=== PATIENT | female | born 1960 | race Caucasian/White ===

== ENCOUNTER 2016-09-07 18:51 | Emergency (ER) | payer OTHER ==
[~2016-09-07] VITALS: Ht 162.6 cm; Wt 81.6 kg
[~2016-09-07 18:51] MED LIST: ALBU8.5H2 IH; ALEN70TA45 PO; ARIP5TAB4 PO; ASPI-605 PO; ATOR40TA GT; LORA0.5T PO; LORA10TA7 PO; PROP20TA7 PO; RANI150T8 PO
[2016-09-07 18:55] VITALS: BP 133/81
[2016-09-07] MEDS ORDERED: CYCLOBENZAPRINE 10 MG TABLET PO ONE (21:30)
[2016-09-07] MEDS ORDERED: CYCLOBENZAPRINE 10 MG TABLET ONE (21:30)
[2016-09-07] MEDS ORDERED: IBUPROFEN 600 MG TABLET PO ONE ×2 (21:30)
== END 2016-09-07 22:38 | disposition home or self-care (01) ==
LOC: ER 18:54
DX: M54.2 Cervicalgia (principal); G50.0 Trigeminal neuralgia; I10 Essential (primary) hypertension; J45.909 Unspecified asthma, uncomplicated; K21.9 Gastro-esophageal reflux disease without esophagitis; I83.90 Asymptomatic varicose veins of unspecified lower extremity; Z79.82 Long term (current) use of aspirin
CPT/HCPCS: 72040; 99284; A4606; Z7610

== ENCOUNTER 2016-11-13 12:09 | Emergency (ER) | payer OTHER ==
[~2016-11-13] VITALS: Ht 165.1 cm; Wt 127.0 kg
[2016-11-13 12:41] VITALS: BP 134/81
[2016-11-13] MEDS ORDERED: KETOROLAC TROMETHAMINE INJ 60 MG/2 ML VIAL IM ONE ×2 (13:30→13:52)
== END 2016-11-13 14:16 | disposition home or self-care (01) ==
LOC: EDUNIT# 12:09 → ER 12:11
DX: M54.42 Lumbago with sciatica, left side (principal); G89.29 Other chronic pain; I10 Essential (primary) hypertension; J45.909 Unspecified asthma, uncomplicated; K21.9 Gastro-esophageal reflux disease without esophagitis; Z79.82 Long term (current) use of aspirin; Z82.49 Family history of ischemic heart disease and other diseases of the circulatory system
CPT/HCPCS: A4606; J1885; Z7610

== ENCOUNTER 2018-04-24 21:19 | Emergency (ER) | payer OTHER ==
[~2018-04-24] VITALS: Ht 162.6 cm; Wt 86.2 kg
[~2018-04-24 21:19] MED LIST changes: -ALBU8.5H2 IH; +ALBU8.5H8 IH; +ARIP5TAB10 PO; -ARIP5TAB4 PO
[2018-04-24 22:00] VITALS: BP 120/70
[2018-04-24 23:13] LABS: APPEARANCE,URINE SL CLOUDY (CLEAR); BILIRUBIN,URINE NEGATIVE (NEGATIVE); BLOOD, URINE NEGATIVE Ery/uL (NEGATIVE); COLOR,URINE YELLOW (YELLOW); KETONES,URINE NEGATIVE (NEGATIVE); LEUKOCYTE ESTERASE ,URINE NEGATIVE (NEGATIVE); NITRITE, URINE NEGATIVE (NEGATIVE); PROTEIN,URINE NEGATIVE (NEGATIVE); UGLUCOSE NEGATIVE (NEGATIVE); UROBILINOGEN,URINE 0.2 EU/dL (0.2)
--- NOTE | 2018-04-24 23:30 | NUR ---
CALLED FOR ROOM ASSIGNMENT; NOT IN LOBBY.
--- NOTE | 2018-04-24 23:46 | NUR ---
CALLED AGAIN; NO ANSWER
== END 2018-04-24 23:47 | disposition left against medical advice (07) ==
LOC: ER 21:19
DX: J45.909 Unspecified asthma, uncomplicated (principal); M54.9 Dorsalgia, unspecified; Z53.21 Procedure and treatment not carried out due to patient leaving prior to being seen by health care provider
CPT/HCPCS: A4606; Z7610; 81000-TC

== ENCOUNTER 2023-08-15 00:48 | Emergency (ER) | payer OTHER ==
[~2023-08-15] VITALS: Ht 160 cm; Wt 96.2 kg
[~2023-08-15 00:48] MED LIST changes: -ALEN70TA45 PO; +ALEN70TA80 PO
[2023-08-15 01:20] LABS: BASOPHILS % (AUTO) 0.4 % (0.0-2.0); EOSINOPHILS # (AUTO) 0.3 K/uL (0.0-0.7); EOSINOPHILS % (AUTO) 2.7 % (0.0-6.0); HEMATOCRIT 38 % (33-45); HEMOGLOBIN 12.7 g/dL (11.5-14.8); LYMPHOCYTES # (AUTO) 2.2 K/uL (0.8-4.8); LYMPHOCYTES % (AUTO) 20.5 % (20.0-44.0); MEAN CORPUSCULAR HEMOGLOBIN 29 PG (26.0-33.0); MEAN CORPUSCULAR HGB CONC 34 g/dl (31.0-36.0); MEAN CORPUSCULAR VOLUME 85 fL (82-100); MONOCYTES # (AUTO) 0.4 K/uL (0.1-1.30); MONOCYTES % (AUTO) 3.8 % (2.0-12.0); NEUTROPHILS # (AUTO) 7.8 K/uL (1.8-8.9); NEUTROPHILS % (AUTO) 72.6 % (43.0-81.0); PLATELET COUNT (AUTO) 287 K/uL (150-450); RED BLOOD CELL COUNT(AUTO) 4.43 MIL/uL (4.0-5.2); WHITE BLOOD COUNT (AUTO) 10.8 K/uL (4.3-11.0)
[2023-08-15 01:28] LABS: CREATININE 0.8 mg/dL (0.6-1.3); POTASSIUM 3.4 mmol/L (3.5-5.1)
[2023-08-15 01:35] LABS: LACTIC ACID 1.1 mmol/L (0.4-2.0)
[2023-08-15 01:40] LABS: ALBUMIN 3.4 g/dL (3.4-5.0); BILIRUBIN,TOTAL 0.2 mg/dL (0.2-1.0)
[2023-08-15 02:26] LABS: APPEARANCE,URINE CLEAR (CLEAR); BILIRUBIN,URINE NEGATIVE (NEGATIVE); BLOOD, URINE NEGATIVE Ery/uL (NEGATIVE); COLOR,URINE YELLOW (YELLOW); KETONES,URINE NEGATIVE (NEGATIVE); LEUKOCYTE ESTERASE ,URINE NEGATIVE (NEGATIVE); NITRITE, URINE NEGATIVE (NEGATIVE); PROTEIN,URINE NEGATIVE (NEGATIVE); UGLUCOSE NEGATIVE (NEGATIVE); UROBILINOGEN,URINE 0.2 EU/dL (0.2)
[2023-08-15] MEDS ORDERED: POTASSIUM CHLORIDE 10 MEQ TABLET.SA PO ONE (03:30)
[2023-08-15] MEDS ORDERED: POTASSIUM CHLORIDE 10 MEQ TABLET.SA ONE (03:33)
[2023-08-15] MEDS ORDERED: HYDROCODONE/APAP 5/325MG TABLET ONE (03:49)
[2023-08-15] MEDS ORDERED: HYDROCODONE/APAP 5/325MG TABLET PO ONE (04:00)
[2023-08-15 04:02] VITALS: BP 134/98; TEMP 98.2; O2SAT 97
== END 2023-08-15 04:03 | disposition home or self-care (01) ==
LOC: ER 00:50
DX: R07.9 Chest pain, unspecified (principal); R51.9 Headache, unspecified; I10 Essential (primary) hypertension; J45.909 Unspecified asthma, uncomplicated; K21.9 Gastro-esophageal reflux disease without esophagitis; Z79.51 Long term (current) use of inhaled steroids; Z79.899 Other long term (current) drug therapy
CPT/HCPCS: 36415; 70450-TC; 71045-TC; 80053-TC; 83605-TC; 83880; 84484-TC; 85025-TC